=== PATIENT | male | born 1955 | race Caucasian/White ===

== ENCOUNTER → 2016-11-28 | Outpatient (CLI) | payer BC ==
--- NOTE | 2016-11-28 16:03 | XR ---
Fifth digit right hand HISTORY: Trauma and pain 3 views of the fifth digit of the right hand No comparisons Alignment and bone mineralization are maintained. There is a lucency at the level of the top of the f ifth digit on one which may represent a nondisplaced fracture. Degenerative changes are present at th e distal interphalangeal joint. IMPRESSION: Possible nondisplaced fracture distal fifth digit, follow-up as indicated
== END | disposition home or self-care (01) ==
LOC: RADXRYALE 15:46
PROVIDERS: ATTEND Family Medicine
DX: M79.644 Pain in right finger(s) (principal)

== ENCOUNTER → 2016-12-16 | Outpatient (CLI) | payer BC ==
--- NOTE | 2016-12-16 15:10 | XR ---
Right leg HISTORY: Trauma and pain 2 views of the right leg submitted on 4 images No comparisons Soft tissue calcifications are thought likely to be vascular. There is a plantar calcaneal spur noted incidentally. Soft tissue swelling is suspected. No radiopaque foreign body. No fracture or dislocat ion. There is overlying artifact. IMPRESSION: Soft tissue swelling and additional findings above. Follow-up as indicated.
== END ==
LOC: RADXRYALE 14:06
PROVIDERS: ATTEND Physician Assistant Medical
DX: M79.89 Other specified soft tissue disorders (principal); M79.604 Pain in right leg; S87.81XA Crushing injury of right lower leg, initial encounter

== ENCOUNTER → 2017-01-20 | Outpatient (CLI) | payer BC ==
--- NOTE | 2017-01-20 10:47 | US ---
EXAMINATION TYPE: US venous doppler duplex LE RT DATE OF EXAM: 01/20/2017 10:15 AM COMPARISON: NONE CLINICAL HISTORY: 61-year-old male RLE, Hematoma [id number]. Pt having pain and swelling right medial c mcfp s/p tree falling on leg SIDE PERFORMED: Right TECHNIQUE: The lower extremity deep venous system is examined utilizing real time linear array sonog kenneth with graded compression, doppler sonography and color-flow sonography. FINDINGS: VESSELS IMAGED: External Iliac Vein (EIV) Common Femoral Vein Deep Femoral Vein Greater Saphenous Vein * Femoral Vein Popliteal Vein Small Saphenous Vein * Proximal Calf Veins (* superficial vessels) Right Leg: Negative for DVT. The right medial calf in area of pt's injury, pain and swelling shows an elongated fluid collection= 12.0 x 1.6 x 12.5 cm located along the superficial fascia. Results called to Dr. Thibodeaux at time of exam IMPRESSION: 1. No evidence for DVT within the right lower extremity imaged from the groin to the upper calf. 2. Along the medial calf at the site of patient's injury, there is an elongated 2.5 cm fluid collecti on at the junction of the subcutaneous fat and superficial fascia. Hematoma or accumulated fluid is s uggested from possible shear injury. This can be followed clinically to ensure gradual involution.
== END ==
LOC: RADUSWWP 09:51
PROVIDERS: ATTEND Physical Medicine & Rehabilitation
DX: S89.91XA Unspecified injury of right lower leg, initial encounter (principal); M48.062 Spinal stenosis, lumbar region with neurogenic claudication; M47.27 Other spondylosis with radiculopathy, lumbosacral region; M51.17 Intervertebral disc disorders with radiculopathy, lumbosacral region; M54.2 Cervicalgia; M16.12 Unilateral primary osteoarthritis, left hip; K21.9 Gastro-esophageal reflux disease without esophagitis

== ENCOUNTER → 2020-02-24 | Outpatient (CLI) | payer MEDICARE | END | disposition home or self-care (01) | LOC: LABWHC1 08:25 | PROVIDERS: ATTEND Surgery | DX: Z01.818 Encounter for other preprocedural examination (principal); Z20.828 Contact with and (suspected) exposure to other viral communicable diseases | CPT/HCPCS: U0003; C9803 ==

== ENCOUNTER 2020-03-03 08:12 | Day surgery (SDC) | payer BC, MEDICARE ==
[2020-02-29 09:10] VITALS: BMI 41.8
[~2020-03-03 08:12] MED LIST: LACTATED RINGERS 1,000 ML IV SCH
[2020-03-03 08:32] VITALS: BP 173/84; PULSE 56; RESP 18; TEMP 97.2
[2020-03-03] MEDS ORDERED: LIDOCAINE 1% (10MG/ML) FOR IV START INTRADERMA ONE (08:50)
[2020-03-03] MEDS ORDERED: PROPOFOL 10 MG/ML 20 ML VIAL IV ONE (09:30)
[2020-03-03] MEDS ORDERED: LIDOCAINE 1% INJ 10MG/ML (20 ML MDV) ONE (09:30)
--- NOTE | 2020-03-03 09:48 | P.PCN ---
Date of Procedure: 03/03/20 Preoperative Diagnosis: Constipation/hemorrhoids Postoperative Diagnosis: Internal hemorrhoids Procedure(s) Performed: Colonoscopy Surgeon: Dakota Baxter Pathology: none sent Condition: stable Disposition: same day Indications for Procedure: 64-year-old male presents for colonoscopy. He has been having significant issues with constipation causing rectal pain due to hemorrhoids and concern for a fissure. Plan is for endoscopic exam. Risks, benefits and alternatives were provided to the patient. He did provide consent prior to attending the endoscopy suite. Operative Findings: Internal hemorrhoids, sentinel pile Description of Procedure: The patient was brought into the endoscopy suite. She was placed in the left lateral decubitus position and an adequate sedation was achieved using conscious sedation. A digital rectal exam was armed and mild internal hemorrhoids were palpated. An endoscope was then placed in the rectum and advanced to the cecum as identified by landmarks including the appendiceal orifice and the ileocecal valve. The prep was fair. The colonoscope was then slowly withdrawn, examining for any mucosal abnormalities. The cecum, ascending, transverse, descending and sigmoid colon were visualized adequately. No large masses were noted throughout the colon. No obvious polyps were noted throughout the colon. No obvious diverticulosis throughout the colon. Retroflexion was performed in the rectum and mild internal hemorrhoids were visible. Anal exam was performed and a sentinel pile was noted, no active fissure. Excess air was removed, the colonoscope withdrawn and the procedure terminated. The patient was then transferred to the recovery unit in stable condition. Next colonoscopy in 7 years.
== END 2020-03-03 10:18 | disposition home or self-care (01) ==
LOC: ORWHC2ENDO 08:12
PROVIDERS: ATTEND Surgery
DX: K64.8 Other hemorrhoids (principal); K64.4 Residual hemorrhoidal skin tags; K21.9 Gastro-esophageal reflux disease without esophagitis; Z90.89 Acquired absence of other organs; I10 Essential (primary) hypertension; Z87.891 Personal history of nicotine dependence; Z97.2 Presence of dental prosthetic device (complete) (partial); Z79.891 Long term (current) use of opiate analgesic; Z80.0 Family history of malignant neoplasm of digestive organs; Z82.49 Family history of ischemic heart disease and other diseases of the circulatory system; Z80.1 Family history of malignant neoplasm of trachea, bronchus and lung; Z79.899 Other long term (current) drug therapy; Z88.1 Allergy status to other antibiotic agents
CPT/HCPCS: 45378; J2001; J2704

== ENCOUNTER → 2021-03-06 | Outpatient (CLI) | payer MEDICARE ==
--- NOTE | 2021-03-06 10:07 | XR ---
EXAMINATION TYPE: XR hand complete RT DATE OF EXAM: 03/06/2021 COMPARISON: NONE HISTORY: pain TECHNIQUE: Three views are submitted. FINDINGS: The osseous structures are intact. Arthropathy of the first second and third metacarpals. And there i s no acute fracture or dislocation. Remote trauma fifth metacarpal. IMPRESSION: 1. Arthropathy of the first, second and third metacarpal with spurring involving the head of the thir d metacarpal which may correspond to the palpable abnormality correlate clinically and with MRI as cl inically warranted.
== END | disposition home or self-care (01) ==
LOC: RADXRYALE 09:47
PROVIDERS: ATTEND Family Medicine
DX: M12.841 Other specific arthropathies, not elsewhere classified, right hand (principal); M25.741 Osteophyte, right hand

== ENCOUNTER → 2021-07-30 | Outpatient (CLI) | payer MEDICARE ==
--- NOTE | 2021-07-30 13:27 | XR ---
EXAMINATION TYPE: XR shoulder complete LT DATE OF EXAM: 07/30/2021 COMPARISON: NONE HISTORY: Pain TECHNIQUE: Three views are submitted. FINDINGS: The osseous structures are intact. There is no acute fracture or dislocation. AC joint arthropathy w as spurs extending from the joint space. IMPRESSION: 1. AC joint arthropathy correlate to rotator cuff disease. Consider follow-up MRI.
--- NOTE | 2021-07-30 13:28 | XR ---
EXAMINATION TYPE: XR knee complete LT DATE OF EXAM: 07/30/2021 COMPARISON: NONE HISTORY: Pain TECHNIQUE: Three views are submitted. FINDINGS: Mild narrowing of the joint spaces with diffuse osteopenia. No erosive change. Vascular calcification s noted.. Osseous structures are intact. No acute fracture seen. IMPRESSION: 1. Osteoarthritis. 2. No acute fracture..
== END | disposition home or self-care (01) ==
LOC: RADXRYALE 10:59
PROVIDERS: ATTEND Family Medicine
DX: M17.12 Unilateral primary osteoarthritis, left knee (principal)

== ENCOUNTER → 2022-12-24 | Outpatient (CLI) | payer MEDICARE ==
--- NOTE | 2022-12-24 11:09 | XR ---
EXAMINATION TYPE: XR hand complete RT DATE OF EXAM: 12/24/2022 COMPARISON: NONE HISTORY: Pain and palpable abnormality between the third and fourth knuckles TECHNIQUE: Three views are submitted. FINDINGS: The osseous structures are intact. There is narrowing of the MCP joints of the first through third di gits with osseous excrescence extending off the head of the third metacarpal along the dorsal surface of the wrist. There is adjacent soft tissue edema. There is a DIP joint arthropathy of all digits. No erosive changes. Mild radiocarpal joint and first carpal metacarpal joint arthropathy. No acute fracture. No dislocation.. IMPRESSION: 1. Arthropathy with a exostosis extending off the dorsal surface of the head of the third metacarpal best seen on the lateral view. This was noted on the prior x-ray and appears to be increased in size from prior exam. Correlate with MRI as clinically warranted.
== END | disposition home or self-care (01) ==
LOC: RADXRYALE 08:50
PROVIDERS: ATTEND Family Medicine
DX: M79.641 Pain in right hand (principal); M89.9 Disorder of bone, unspecified

== ENCOUNTER → 2023-01-15 | Outpatient (CLI) | payer MEDICARE ==
--- NOTE | 2023-01-15 14:37 | XR ---
EXAMINATION TYPE: XR chest 2V DATE OF EXAM: 01/15/2023 COMPARISON: 11/20/2015 HISTORY: 67-year-old male [id number], chest pain TECHNIQUE: Frontal and lateral views FINDINGS: The cardiomediastinal silhouette, aorta, and pulmonary vasculature are within normal limits. Lungs an d pleural spaces are clear. ACDF hardware. Mild anterior wedging at the thoracolumbar junction is unc hanged compatible with old injury. IMPRESSION: No acute cardiopulmonary process.
== END | disposition home or self-care (01) ==
LOC: RADXRYALE 14:04
PROVIDERS: ATTEND Physician Assistant Medical
DX: R07.89 Other chest pain (principal)
CPT/HCPCS: 71046

== ENCOUNTER → 2023-11-11 | Outpatient (CLI) | payer MEDICARE ==
--- NOTE | 2023-11-11 20:09 | US ---
EXAMINATION TYPE: US carotid duplex BILAT DATE OF EXAM: 11/11/2023 COMPARISON: NONE CLINICAL INDICATION: Male, 67 years old with history of R42 DIZZINESS GIDDINESS G31.84; Dizziness. Pr ior smoker. TECHNIQUE: Carotid duplex ultrasound examination. Indirect Doppler criteria was utilized. FINDINGS: EXAM MEASUREMENTS: RIGHT: Peak Systolic Velocity (PSV) cm/sec ----- Right CCA: 67.7 ----- Right ICA: 72.4 ----- Right ECA: 104.8 ICA/CCA ratio: 1.1 RIGHT: End Diastole cm/sec ----- Right CCA: 15.4 ----- Right ICA: 9.8 ----- Right ECA: 16.0 LEFT: Peak Systolic Velocity (PSV) cm/sec ----- Left CCA: 78.2 ----- Left ICA: 66.8 ----- Left ECA: 135.5 ICA/CCA ratio: 0.9 LEFT: End Diastole cm/sec ----- Left CCA: 21.5 ----- Left ICA: 17.1 ----- Left ECA: 17.6 VERTEBRALS (direction of flow): Right Vertebral: Antegrade Left Vertebral: Antegrade Rhythm: Normal OPTICS TEST TECHNICIAN NOTES: Slightly elevated velocity within left ECA. Shadowing plaques seen within bilate ral bulbs and proximal right ICA IMPRESSION: 1. Hard and soft atheromatous plaquing present bilaterally without significant flow-limiting stenosis based on velocities. Criteria for Assigning % of Stenosis / Diameter reduction (Estimation based on the indirect measurements of the internal carotid artery velocities (ICA PSV). 1. Normal (no stenosis)=ICA PSV < 125 cm/s: ratio < 2.0: ICA EDV<40 cm/s. 2. Less than 50% stenosis=ICA PSV < 125 cm/s: ratio < 2.0: ICA EDV<40 cm/s. 3. 50 to 69% stenosis=ICA PSV of 125 to 230 cm/s: ration 2.0 ? 4.0: ICA EDV 40-100 cm/s. 4. Greater than 70% stenosis to near occlusion= ICA PSV > 230 cm/s: ratio > 4.0: ICA EDV > 100 cm/s. 5. Near occlusion= ICA PSV velocities may be low or undetectable: variable ratio and ICA EDV. 6. Total occlusion=unable to detect flow. [facility], , 11/11/2023 8:07 PM
== END | disposition home or self-care (01) ==
LOC: RADUSWWP 15:32
PROVIDERS: ATTEND Family Medicine
DX: R42 Dizziness and giddiness
CPT/HCPCS: 93880

== ENCOUNTER → 2023-11-11 | Outpatient (CLI) | payer MEDICARE ==
--- NOTE | 2023-11-12 10:51 | CA ---
Transthoracic Echo Report Name: Jaspreet Victoria Age: 67 Gender: M : 1955 Exam Date: 11/11/2023 14:57 Exam Location: [facility] Ht (in): 72 Wt (lb): 300 Ordering Physician: Laurent Ferrell DO Attending/Referring Phys: Induction Furnace Operator Snehal Sutherland RDCS Procedure CPT: Indications: R07.89 CHEST PAIN R53.83 FATIGUE R06.02 SOB I10 HT Cardiac Hx: Technical Quality: Technically difficult study Contrast 1: Definity Total Dose (mL): 2 Contrast 2: Total Dose (mL): MEASUREMENTS (Male / Female) Normal Values 2D ECHO LV Diastolic Diameter PLAX 5.7 cm 4.2 - 5.9 / 3.9 - 5.3 cm LV Systolic Diameter PLAX 4.0 cm IVS Diastolic Thickness 1.0 cm 0.6 - 1.0 / 0.6 - 0.9 cm LVPW Diastolic Thickness 0.9 cm 0.6 - 1.0 / 0.6 - 0.9 cm LV Relative Wall Thickness 0.3 LVOT Diameter 2.2 cm LV Diastolic Volume MOD BP 123.4 cm??? 67 - 155 / 56 - 104 cm??? LV Systolic Volume MOD BP 47.7 cm??? 22 - 58 / 19 - 49 cm??? LV Ejection Fraction MOD BP 61.3 % >= 55 % LV Cardiac Index MOD BP 1943.9 cm???/min???m??? LV Diastolic Volume MOD 4C 116.6 cm??? LV Systolic Volume MOD 4C 48.3 cm??? LV Ejection Fraction MOD 4C 58.6 % LV Cardiac Index MOD 4C 1753.3 cm???/min???m??? LV Diastolic Length 4C 7.6 cm LV Systolic Length 4C 6.3 cm LV Diastolic Volume MOD 2C 128.4 cm??? LV Systolic Volume MOD 2C 45.9 cm??? LV Ejection Fraction MOD 2C 64.2 % LV Cardiac Index MOD 2C 2117.5 cm???/min???m??? LV Diastolic Length 2C 7.8 cm LV Systolic Length 2C 6.1 cm LA Volume 44.2 cm??? 18 - 58 / 22 - 52 cm??? LA Volume Index 16.5 cm???/m??? 16 - 28 cm???/m??? Ascending Aorta Diameter 3.8 cm DOPPLER AV Peak Velocity 132.9 cm/s AV Peak Gradient 7.1 mmHg AV Mean Velocity 82.4 cm/s AV Mean Gradient 3.2 mmHg AV Velocity Time Integral 25.6 cm LVOT Peak Velocity 113.8 cm/s LVOT Peak Gradient 5.2 mmHg LVOT Velocity Time Integral 23.5 cm LVOT Stroke Volume 93.0 cm??? LVOT Stroke Volume Index 36.8 ml/m??? LVOT Cardiac Index 2388.9 cm???/min???m??? AV Area Cont Eq vti 3.6 cm??? AV Area Cont Eq pk 3.4 cm??? MV Area PHT 3.6 cm??? Mitral E Point Velocity 53.5 cm/s Mitral A Point Velocity 49.5 cm/s Mitral E to A Ratio 1.1 MV Deceleration Time 209.6 ms PV Peak Velocity 85.1 cm/s PV Peak Gradient 2.9 mmHg FINDINGS Left Ventricle Left ventricular ejection fraction is estimated at 55-60 %. Left ventricular cavity size normal. Left ventricular wall thickness normal. No obvious regional wall motion abnormalities. Right Ventricle Normal right ventricular size and function. Unable to estimate the right ventricular systolic pressure. Right Atrium Normal right atrial size. Left Atrium Normal left atrial size. Mitral Valve Structurally normal mitral valve. No mitral stenosis, regurgitation or prolapse. Aortic Valve Trileaflet aortic valve. Aortic valve sclerosis. No aortic stenosis. No aortic regurgitation. Tricuspid Valve Structurally normal tricuspid valve. No tricuspid stenosis. No tricuspid regurgitation. Pulmonic Valve Pulmonic valve not well visualized. No pulmonic stenosis. No pulmonic regurgitation. Pericardium No pericardial effusion. Aorta Normal size aortic root and proximal ascending aorta. CONCLUSIONS Diagnosis chest pain Preserved LV size and systolic function Prominent posterior pericardial stripe/chronic pericarditis without effusion Previewed by: Dr. Shemar Huerta MD (Electronically Signed) Final Date: 12 November 2023 10:50
== END | disposition home or self-care (01) ==
LOC: RADECHMAIN 14:18
PROVIDERS: ATTEND Family Medicine
DX: I31.9 Disease of pericardium, unspecified (principal); R07.89 Other chest pain; R53.83 Other fatigue; R42 Dizziness and giddiness; G31.84 Mild cognitive impairment of uncertain or unknown etiology; R06.02 Shortness of breath; I10 Essential (primary) hypertension
CPT/HCPCS: 93306